=== PATIENT | female | born 1950 | race Caucasian/White ===

== ENCOUNTER 2019-05-20 05:51 | Emergency (ER) | payer OTHER ==
--- NOTE | 2019-05-20 05:57 | PDOC ---
History of Present Illness - General Chief Complaint: Pain, Acute Stated Complaint: ROOM SPINNING, DIZZY, HEADACHE Time Seen by Provider: 05/20/19 05:56 - History of Present Illness Initial Comments: 05/20/19 06:06 This 68-year-old woman with a history of DM (type II) presents with her daughter with few hour history of vertigo and frontal headache. 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 According to the daughter, the patient was in her normal state of health when she went to sleep last night. She awakened approximately 3 AM with headache and found that she was extremely dizzy ("room spinning"). She had severe nausea and diaphoresis with this but no vomiting. No recent fever/chills/stiff neck rash or upper respiratory symptoms.No recent history of head trauma. No previous history of vertigo. Patient does not frequently experience headaches and did not take any medication for this headache. Patient was able to ambulate with help of her daughter No chest pain/shortness of breath/abdominal pain noted. Medications as noted below No smoking history; no daily alcohol or other recreational drug use Past History - Past Medical History Allergies/Adverse Reactions: Allergies Allergy/AdvReac Type Severity Reaction Status Date / Time No Known Allergies Allergy Verified 05/20/19 05:53 Home Medications: Ambulatory Orders Hydrochlorothiazide [Hctz -] 25 mg PO DAILY 05/20/19 Levothyroxine [Synthroid -] 25 mcg PO DAILY 05/20/19 Meclizine HCl [Antivert -] 12.5 - 25 mg PO TID PRN #20 tablet 05/20/19 metFORMIN HCL [Metformin HCl] 1,000 mg PO BID 05/20/19 Review of Systems - Review of Systems Able to Perform ROS?: Yes Comments:: 12 point review of systems is negative except for what is noted in the history of present illness *Physical Exam - Physical Exam Comments: GENERAL: Adult female, lying with her eyes closed, appearing in mild distress HEAD: Normal with no signs of trauma. EYES: PERRLA, EOMI, sclera anicteric, conjunctiva clear. No abnormal nystagmus noted ENT: Ears normal, nares patent, oropharynx clear without exudates. Dry mucous membranes. NECK: Normal range of motion, supple without lymphadenopathy, JVD, or masses. No bruits heard LUNGS: Breath sounds equal, clear to auscultation bilaterally. No wheezes, and no crackles. HEART:Regular rate and rhythm, normal S1 and S2 without murmur, rub or gallop. ABDOMEN:.normal bowel sounds No guarding,tenderness or rebound.No masses No distention. EXTREMITIES: Normal range of motion, no edema. No clubbing or cyanosis. No erythema, or tenderness. NEUROLOGIC: Cranial nerves grossly intact; no pronator drift; extremities 5/5 bilaterally; gait not tested ED Treatment Course - LABORATORY CBC & Chemistry Diagram: 05/20/19 06:13 05/20/19 06:13 Medical Decision Making - Medical Decision Making This 60-year-old woman with a history of type II DM presents with frontal headache and vertigo for the last 2-3 hours (awakened at 3 AM with symptoms). Patient has no previous history of vertigo and does not experience headaches frequently. No recent acute illnesses. Exam as noted. No abnormal nystagmus seen on ocular exam; vertigo could not be reproduced with postural maneuvers. IV access obtained; CBC and chemistry profile sent. Acetaminophen 1 g IV administered Noncontrast head CT will be performed to evaluate for acute intracranial pathology 05/20/19 07:18 Case signed out to Dr. Wells at end of shift. Discharge - Discharge Information Clinical Impression/Diagnosis: Vertigo Condition: Improved Disposition: HOME - Additional Discharge Information Prescriptions: Meclizine HCl [Antivert -] 12.5 - 25 mg PO TID PRN #20 tablet PRN Reason: Vertigo - Follow up/Referral - Patient Discharge Instructions Patient Printed Discharge Instructions: DI for Vertigo, DI for Diabetes Type 2 - Post Discharge Activity
[2019-05-20 06:01] VITALS: BP 156/61; PULSE 95; TEMP 97.6; BMI 27.1
[2019-05-20] MEDS ORDERED: ONDANSETRON 4 MG/2 ML VIAL IVPUSH ONE (06:10)
[2019-05-20] MEDS ORDERED: ACETAMINOPHEN 1000 MG/100 ML VIAL (NON FORMULARY) IVPB ONE (06:11)
[2019-05-20] MEDS ORDERED: ACETAMINOPHEN INJECTION 100 ML IVPB ONE (06:18)
[2019-05-20] MEDS ORDERED: ONDANSETRON 4 MG/2 ML VIAL ONE (06:18)
[2019-05-20 08:28] LABS: ALBUMIN 3.8 g/dl (3.4-5.0); BILIRUBIN,TOTAL 0.3 mg/dL (0.2-1); BLOOD UREA NITROGEN 15.9 mg/dL (7-18); CALCIUM 9.3 mg/dL (8.5-10.1); CREATININE 0.7 mg/dL (0.55-1.3); POTASSIUM 4.1 mmol/L (3.5-5.1); TOT PROT 7.2 g/dl (6.4-8.2)
[2019-05-20 08:29] LABS: BASO % 0.7 % (0-2.0); EOS % 0.5 % (0-4.5); HEMATOCRIT 37.4 % (32.4-45.2); HEMOGLOBIN 12.7 GM/dL (10.7-15.3); LYMPH % 13.5 % (8-40); MCH 29.3 pg (25.7-33.7); MCHC 33.9 g/dl (32.0-36.0); MEAN CELL VOLUME 86.5 fl (80-96); MEAN PLT VOLUME 8.3 fl (7.5-11.1); MONO % 4.1 % (3.8-10.2); NEUT % 81.2 % (42.8-82.8); PLATELET COUNT 347 K/MM3 (134-434); RBC 4.33 M/mm3 (3.60-5.2); RDW 13.7 % (11.6-15.6); WHITE BLOOD COUNT 10.9 K/mm3 (4.0-10.0)
--- NOTE | 2019-05-20 09:22 | PDOC ---
*Physical Exam - Vital Signs Last Vital Signs Temp Pulse Resp BP Pulse Ox 97.6 F 95 H 17 156/61 95 05/20/19 05:57 05/20/19 05:57 05/20/19 05:57 05/20/19 05:57 05/20/19 05:57 - Physical Exam Comments: 05/20/19 09:22 Patient is much improved. Her symptoms have completely resolved. No further dizziness/vertigo, or nausea. ED Treatment Course - LABORATORY CBC & Chemistry Diagram: 05/20/19 06:13 05/20/19 06:13 - ADDITIONAL ORDERS Additional order review: Laboratory Results 05/20/19 06:13 Sodium 137 Potassium 4.1 Chloride 100 Carbon Dioxide 28 Anion Gap 9 BUN 15.9 Creatinine 0.7 Est GFR (CKD-EPI)AfAm 103.18 Est GFR (CKD-EPI)NonAf 89.03 Random Glucose 292 H Calcium 9.3 Total Bilirubin 0.3 AST 16 ALT 37 Alkaline Phosphatase 129 H Total Protein 7.2 Albumin 3.8 05/20/19 06:13 RBC 4.33 MCV 86.5 MCHC 33.9 RDW 13.7 MPV 8.3 Neutrophils % 81.2 Lymphocytes % 13.5 Monocytes % 4.1 Eosinophils % 0.5 Basophils % 0.7 - Medications Given in the ED: ED Medications Discontinued Medications Generic Name Dose Route Start Last Admin Trade Name Kuldeep PRN Reason Stop Dose Admin Acetaminophen 1,000 mg 05/20/19 06:11 05/20/19 06:23 Ofirmev Injection - IVPB 05/20/19 06:12 1,000 mg ONCE ONE Administration Ondansetron HCl 4 mg 05/20/19 06:10 05/20/19 06:23 Zofran Injection IVPUSH 05/20/19 06:11 4 mg ONCE ONE Administration Medical Decision Making - Medical Decision Making 05/20/19 09:23 CT is negative Labs without significant abnormality except for elevated sugar of 292. Better blood glucose control as discussed. Patient will follow-up as directed with her primary physician. To closely monitor her sugars and treat accordingly. Fully ambulatory and in no distress, no dizziness, vertigo, or nausea, at discharge with family to follow-up as directed. Discharge - Discharge Information Problems reviewed: Yes Clinical Impression/Diagnosis: Vertigo Condition: Improved Disposition: HOME - Admission No - Additional Discharge Information Prescriptions: Meclizine HCl [Antivert -] 12.5 - 25 mg PO TID PRN #20 tablet PRN Reason: Vertigo - Follow up/Referral - Patient Discharge Instructions Patient Printed Discharge Instructions: DI for Vertigo, DI for Diabetes Type 2 - Post Discharge Activity
== END 2019-05-20 10:02 | disposition home or self-care (01) ==
LOC: FER 05:51
PROC: 3E033NZ Introduction of Analgesics, Hypnotics, Sedatives into Peripheral Vein, Percutaneous Approach (ICD-10-PCS; principal; 2019-05-20)
PROC: 3E033GC Introduction of Other Therapeutic Substance into Peripheral Vein, Percutaneous Approach (ICD-10-PCS; 2019-05-20)
DX: R42 Dizziness and giddiness (principal); E11.9 Type 2 diabetes mellitus without complications; Z79.84 Long term (current) use of oral hypoglycemic drugs
CPT/HCPCS: 36415; 70450-TC; 80053; 85025; 99282-25; J0131